=== PATIENT | male | born 1970 | race Caucasian/White ===

== ENCOUNTER 2017-09-07 11:36 | Emergency (ER) | payer BC ==
[2017-09-07 11:44] VITALS: BP 137/85; PULSE 86; TEMP 98.4; BMI 24.4
--- NOTE | 2017-09-07 13:08 | PDOC ---
History of Present Illness - General History Source: Patient <Bjorn Youngblood - Last Filed: 09/07/17 15:29> - General History Source: Patient (The patient is a 46 year old male, with no significant PMH, who presents to the emergency department with 1 day of left foot pain and swelling. The patient states he was cleaning his gutters yesterday on a 6ft ladder when he fell off the ladder. The patient states he experienced pain and swelling to the left foot/ ankle. He denies any head strike/ injury or loss of consciousness. The patient denies any recent numbness, tingling or loss of sensation. He denies any bowel or bladder incontinence. He denies any chest pain or shortness of breath. ) Exam Limitations: No Limitations <Willem Israel - Last Filed: 09/07/17 15:36> - General Chief Complaint: Pain, Acute Stated Complaint: LEFT FOOT/ANKLE PAIN Time Seen by Provider: 09/07/17 13:03 Past History - Past Medical History COPD: No - Suicide/Smoking/Psychosocial Hx Smoking History: Never smoked Have you smoked in the past 12 months: No Hx Alcohol Use: Yes Drug/Substance Use Hx: No Substance Use Type: None <Bjorn Yougnblood - Last Filed: 09/07/17 15:29> <Willem Israel - Last Filed: 09/07/17 15:36> - Past Medical History Allergies/Adverse Reactions: Allergies Allergy/AdvReac Type Severity Reaction Status Date / Time No Known Allergies Allergy Verified 09/07/17 11:37 Home Medications: Ambulatory Orders Alprazolam [Xanax] 0 mg PO DAILY 09/07/17 Review of Systems - Review of Systems Constitutional: No: Chills, Diaphoresis, Fever, Weakness HEENTM: No: Blurred Vision, Double Vision, Ear Pain, Nose Congestion, Difficulty Swallowing Respiratory: No: Cough, Shortness of Breath, SOB with Exertion, Wheezing, Productive cough Cardiac (ROS): No: Chest Pain, Edema, Lightheadedness, Palpitations, Syncope ABD/GI: No: Abdominal Distended, Constipated, Diarrhea, Nausea, Vomiting : No: Burning, Dysuria, Frequency, Flank Pain, Hematuria, Urgency Musculoskeletal: Yes: Joint Pain (Left foot pain and swelling. ). No: Back Pain , Neck Pain Integumentary: No: Rash, Sweating Neurological: No: Headache, Numbness, Paresthesia, Tingling, Weakness Psychiatric: No: Anxiety, Depression Endocrine: No: Intolerance to Cold, Intolerance to Heat, Unexplained Weight Gain , Unexplained Weight Loss Hematologic/Lymphatic: No: Anemia, Blood Clots <Willem Israel - Last Filed: 09/07/17 15:36> *Physical Exam - Vital Signs Last Vital Signs Temp Pulse Resp BP Pulse Ox 98.4 F 86 18 137/85 100 09/07/17 11:38 09/07/17 11:38 09/07/17 11:38 09/07/17 11:38 09/07/17 11:38 <Bjorn Youngblood S - Last Filed: 09/07/17 15:29> - Vital Signs Last Vital Signs Temp Pulse Resp BP Pulse Ox 98.4 F 86 18 137/85 100 09/07/17 11:38 09/07/17 11:38 09/07/17 11:38 09/07/17 11:38 09/07/17 11:38 - Physical Exam General Appearance: Yes: Nourished, Appropriately Dressed HEENT: positive: EOMI, HOLGER, Normal ENT Inspection, Normal Voice, Symmetrical, TMs Normal, Pharynx Normal Neck: positive: Trachea midline, Supple. negative: Tender Respiratory/Chest: positive: Lungs Clear, Normal Breath Sounds. negative: Respiratory Distress, Rales, Rhonchi, Wheezing Cardiovascular: positive: Regular Rhythm, Regular Rate, S1, S2. negative: Edema , JVD, Murmur Gastrointestinal/Abdominal: positive: Normal Bowel Sounds, Soft. negative: Tender, Organomegaly, Guarding, Rebound, Tenderness Lymphatic: negative: Adenopathy, Tenderness Musculoskeletal: negative: CVA Tenderness, Vertebral Tenderness Extremity: positive: Normal Capillary Refill, Normal Range of Motion, Tender ((+ ) Pain at left foot with palpation to calcaneus.), Pelvis Stable, Swelling ((+) Left foot and ankle swelling. ). negative: Calf Tenderness Integumentary: positive: Normal Color, Dry, Warm Neurologic: positive: windows phone developer II-XII NML intact, Fully Oriented, Alert, Normal Mood/ Affect, Normal Response, Motor Strength 5/5 <Willem Israel - Last Filed: 09/07/17 15:36> ED Treatment Course - RADIOLOGY Radiology Studies Ordered: Category Date Time Status ANKLE & FOOT-LEFT* [RAD] Stat Radiology 09/07/17 11:37 Completed <Bjorn Youngblood - Last Filed: 09/07/17 15:29> - RADIOLOGY Radiology Studies Ordered: 09/07/17 15:19 EXAM#: TYPE/EXAM: RESULT: [id number] RAD/ANKLE FOOT-LEFT* Left Ankle CLINICAL: Injury AP, lateral, and oblique views of the left ankle were obtained. The examination reveals a comminuted fracture of the left calcaneus. A CT scan may be helpful for further evaluation. There is soft tissue swelling over the lateral and medial malleoli. No other fractures are noted. IMPRESSION: Comminuted fracture of the left calcaneus. A CT scan may be helpful for further evaluation. Three Views left Foot. CLINICAL HISTORY: Injury AP, lateral and oblique views of the left foot was obtained. The examination reveals a comminuted fracture of the left calcaneus. There is soft tissue swelling. No other fractures or osseous abnormalities are noted. A CT scan may be helpful for further evaluation. IMPRESSION: Comminuted fracture of the left calcaneus. A CT scan may be helpful for further evaluation. Reported By: Marcos Carcamo MD - Medications Given in the ED: ED Medications Discontinued Medications Generic Name Dose Route Start Last Admin Trade Name Freq PRN Reason Stop Dose Admin Oxycodone/Acetaminophen 1 combo 09/07/17 13:03 09/07/17 13:13 Percocet 5/325 - PO 09/07/17 13:04 1 combo ONCE ONE Administration Oxycodone/Acetaminophen 1 combo 09/07/17 14:37 09/07/17 14:39 Percocet 5/325 - PO 09/07/17 14:38 1 combo ONCE ONE Administration <Willem Israel - Last Filed: 09/07/17 15:36> Medical Decision Making - Medical Decision Making 09/07/17 15:19 X-ray diagnosed comminuted fracture of the left calcaneus. Patient given Percocet pain medications. Patient provided copy of radiological studies. Patient given appropriate information for follow up care for Orthopedics with scheduled visit tomorrow. Patient given benz splint, crutches (pt. given instructions and demonstration on how to use crutches) and advised to keep leg elevated while at home. PA from Orthopedics evaluated patient at bedside and informed of scheduled visit for tomorrow. <Willem Israel - Last Filed: 09/07/17 15:36> *DC/Admit/Observation/Transfer - Discharge Dispostion Decision to Admit order: No <Bjorn Youngblood - Last Filed: 09/07/17 15:29> - Attestations Scribe Attestion: 09/07/17 15:21 Documentation prepared by Willem Israel, acting as medical records custodian for Bjorn Youngblood MD. <Willem Israel - Last Filed: 09/07/17 15:36> Diagnosis at time of Disposition: Fracture of foot Qualifiers: Encounter type: initial encounter Fracture type: closed Laterality: left Qualified Code(s): S92.902A - Unspecified fracture of left foot, initial encounter for closed fracture - Discharge Dispostion Disposition: HOME Condition at time of disposition: Stable - Referrals Referrals: Marco Rahman MD [Staff Physician] - - Patient Instructions Printed Discharge Instructions: DI for Foot Fracture - Post Discharge Activity Forms/Work/School Notes: Back to Work
== END 2017-09-07 15:40 | disposition home or self-care (01) ==
LOC: FER 11:36
DX: S92.902A Unspecified fracture of left foot, initial encounter for closed fracture (principal); W11.XXXA Fall on and from ladder, initial encounter; Y93.89 Activity, other specified; Y92.007 Garden or yard of unspecified non-institutional (private) residence as the place of occurrence of the external cause
CPT/HCPCS: 72100-TC-FY; 73610-TC-LT-FY; 73630-TC-LT; 73700-TC-RT; 99283-25

== ENCOUNTER 2022-08-31 00:13 | Emergency (ER) | payer BC, OTHER ==
[2022-08-31 00:27] VITALS: BP 157/103; PULSE 80; RESP 18; TEMP 98.1; BMI 25.0
[2022-08-31] MEDS ORDERED: DIPHTH,PERTUSS(ACELL),TET 0.5 ML DISP.SYRIN IM ONE ×2 (00:42→00:43)
== END 2022-08-31 00:51 | disposition home or self-care (01) ==
LOC: FER 00:13
PROC: 3E0234Z Introduction of Serum, Toxoid and Vaccine into Muscle, Percutaneous Approach (ICD-10-PCS; principal; 2022-08-31)
DX: S41.151A Open bite of right upper arm, initial encounter (principal); S71.151A Open bite, right thigh, initial encounter; W54.0XXA Bitten by dog, initial encounter
CPT/HCPCS: 90471; 90715; 99282-25